=== PATIENT | female | born 1970 | race Caucasian/White ===

== ENCOUNTER 2016-12-05 09:21 | Emergency (ER) | payer BC ==
[~2016-12-05] VITALS: Ht 165.1 cm; Wt 87.0 kg
[2016-12-05 09:23] VITALS: BP 136/86; PULSE 73; RESP 17; TEMP 97.6; O2SAT 99
[2016-12-05] MEDS ORDERED: FLUO-1 PO (09:38)
[2016-12-05] MEDS ORDERED: LEVO.05 PO (09:38)
[2016-12-05] MEDS ORDERED: ONDANSETRON HCL 4 MG/2 ML VIAL IM ONE (09:45)
[2016-12-05] MEDS ORDERED: KETOROLAC TROMETHAMINE 30 MG/ML (IVP) VIAL IM ONE (09:45)
--- NOTE | 2016-12-05 10:00 | PD ---
HPI Chief Complaint: Flank/Kidney Pain Time Seen by Provider: 09:30 Travel History International Travel<30 days: No Contact w/Intl Traveler<30days: No Traveled to known affect area: No History of Present Illness HPI Healthy 46-year-old female here with complaint of flank pain. Starting upon wakening this morning patient had left-sided flank pain that radiates into the abdomen and into the groin. Patient had associated nausea, vomiting. No abnormal bowel movements. She stated it was difficult to find a comfortable position. She denies any urinary symptoms. No fevers or chills. Patient denies history of ureterolithiasis or pyelonephritis. She hasn't taken anything for pain prior to arrival. Patient is moderate, crampy and occasionally sharp. PFSH Past Medical History Thyroid Disease: Yes (HYPO) Tetanus Vaccination: > 5 Years Influenza Vaccination: Yes ?: Not : 3 Para: 3 Miscarriage: 0 : 0 Past Surgical History Gynecologic Surgery: Yes Hysterectomy: Yes (FULL) Other Surgery: Yes (BREAST AUGMENTATION ) Social History Alcohol Use: Yes (OCCASIONALLY) Tobacco Use: No Substance Use: No Allergies-Medications (Allergen,Severity, Reaction): Coded Allergies: No Known Allergies (Unverified , 12/05/16) Reported Meds & Prescriptions Reported Meds & Active Scripts Active Reported Prozac (Fluoxetine HCl) 10 Mg Cap 10 Mg PO DAILY Synthroid (Levothyroxine Sodium) 50 Mcg Tab 50 Mcg PO DAILY Review of Systems Except as stated in HPI: all other systems reviewed are Neg Physical Exam Narrative GENERAL: Well-appearing female in no acute distress SKIN: Focused skin assessment warm/dry. HEAD: Normocephalic. EYES: No scleral icterus. No injection or drainage. ENT: Mucous membranes pink and moist. NECK: Supple CARDIOVASCULAR: Regular rate and rhythm. No murmur appreciated. RESPIRATORY: No accessory muscle use. Clear to auscultation. Breath sounds equal bilaterally. GASTROINTESTINAL: Abdomen soft, non-tender, nondistended. Left-sided CVA tenderness not made worse with palpation MUSCULOSKELETAL: Normal gait NEUROLOGICAL: Awake and alert. Normal speech. PSYCHIATRIC: Appropriate mood and affect; insight and judgment normal. Data Data Last Documented VS Vital Signs Date Time Temp Pulse Resp B/P Pulse Ox O2 Delivery O2 Flow Rate FiO2 12/05/16 09:34 18 12/05/16 09:23 97.6 73 136/86 99 Orders Urinalysis - C+S If Indicated (12/05/16 09:30) Ct Abd/Pel W/O Iv Contrast (12/05/16 09:37) Oximetry (12/05/16 09:37) Ondansetron Inj (Zofran Inj) (12/05/16 09:45) Ketorolac Inj (Toradol Inj) (12/05/16 09:45) Labs Laboratory Tests Test 12/05/16 09:30 Urine Color YELLOW Urine Turbidity CLEAR Urine pH 6.5 Urine Specific [place] 1.019 Urine Protein NEG mg/dL Urine Glucose (UA) NEG mg/dL Urine Ketones NEG mg/dL Urine Occult Blood MOD Urine Nitrite NEG Urine Bilirubin NEG Urine Urobilinogen LESS THAN 2.0 MG/DL Urine Leukocyte Esterase NEG Urine RBC 75 /hpf Urine WBC 1 /hpf Urine Squamous Epithelial 2 /hpf Cells Urine Mucus FEW /lpf Microscopic Urinalysis Comment CULT NOT INDICATED MDM Medical Decision Making Medical Screen Exam Complete: Yes Emergency Medical Condition: Yes Medical Record Reviewed: Yes Differential Diagnosis 46-year-old female here with left-sided flank pain radiating to abdomen/groin with nausea and vomiting since awakening this morning. Differential includes ureterolithiasis, UTI/pyelonephritis, musculoskeletal. Overall abdominal examination is benign making peritoneal pathology less likely. Narrative Course Patient placed on monitor, given Toradol and Zofran for symptom control. Urinalysis showed blood. No evidence of infection. CT abdomen and pelvis showed 1-2 mm stone at the left UVJ. Patient felt improved and will be discharged home with symptomatic management. Diagnosis Primary Impression: Ureterolithiasis Referrals: Primary Care Physician as needed Patient Instructions: General Instructions, Ureteral Stones (ED) Additional Instructions: Pain and nausea medications as needed. Drink plenty of fluids. Med/Other Pt SpecificInfo: Prescription(s) given Scripts Hydrocodone-Acetaminophen ([place])5-325 mg Tab1 Tab PO Q4H PRN (PAIN) #15 TAB Ref 0 Prov:Tammy Laureano MD 12/05/16 Ondansetron Odt (Zofran Odt)8 Mg Tab8 Mg SL Q8H PRN (NAUSEA OR VOMITING) #10 TAB Ref 0 Prov:Tammy Laureano MD 12/05/16 Disposition: 01 DISCHARGE HOME Condition: Stable Tammy Laureano MD Dec 05, 2016 10:00
[2016-12-05 10:04] LABS: BLOOD, URINE MOD (NEG); GLUCOSE,URINE NEG (NEG); KETONE, URINE NEG (NEG); MUCUS URINE FEW /lpf (OCC); NITRITE,URINE NEG (NEG); PH, URINE 6.5 (5.0-8.5); SQUAMOUS EPITHELIAL CELL URINE 2 /hpf (0-5); URINE COLOR YELLOW (YELLW/STRAW)
[2016-12-05 10:05] LABS: COMMENT (UR) CULT NOT INDICATED; CULTURE IF INDICATED CULT NOT INDICATED
--- NOTE | 2016-12-05 10:35 | RADRPT ---
EXAM DATE/TIME: 12/05/2016 10:03 [facility] COMPARISON: No previous studies available for comparison. INDICATIONS : Left flank pain. ORAL CONTRAST: No oral contrast ingested. RADIATION DOSE: 8.25 CTDIvol (mGy) MEDICAL HISTORY : None SURGICAL HISTORY : Hysterectomy. Breast augmentation. ENCOUNTER: Initial ACUITY: 1 day PAIN SCALE: 6/10 LOCATION: Left flank TECHNIQUE: Volumetric scanning of the abdomen and pelvis was performed. Using automated exposure control and adjustment of the mA and/or kV according to patient size, radiation dose was kept as low as reasonably achievable to obtain optimal diagnostic quality images. FINDINGS: The liver, spleen, pancreas and adrenals are unremarkable. The right kidney is normal. There is mild perinephric stranding about the left and a tiny 2 mm stone at the left urethrovesical j unction. No other calcifications remain in the kidney. The pelvic contents are otherwise unremarkable. CONCLUSION: Small 1-2 mm stone left urethrovesical junction. Yeyo Sandoval MD FACR on December 05, 2016 at 10:17 Board Certified Radiologist. This report was verified electronically.
[2016-12-05] MEDS ORDERED: NORC5TAB PO (10:47)
[2016-12-05] MEDS ORDERED: ZOFR8TAB4 SL (10:47)
== END 2016-12-05 11:23 | disposition home or self-care (01) ==
LOC: NEPD 09:21
DX: N20.1 Calculus of ureter (principal); R11.2 Nausea with vomiting, unspecified; E07.9 Disorder of thyroid, unspecified
CPT/HCPCS: 74176; 81001; 96372; 99284; J1885; J2405